=== PATIENT | female | born 1980 | race Caucasian/White ===

== ENCOUNTER 2019-11-17 16:07 | Emergency (ER) | payer BC, OTHER ==
--- NOTE | 2019-11-17 16:09 | EDM.PDOC ---
ED HPI GENERAL MEDICAL PROBLEM - General Stated Complaint: SHORTNESS OF BREATHE, DIZZINESS Time Seen by Provider: 11/17/19 16:09 Source of Information: Reports: Patient History Limitations: Reports: No Limitations - History of Present Illness INITIAL COMMENTS - FREE TEXT/NARRATIVE: HISTORY AND PHYSICAL: History of present illness: Patient is a 39-year-old female who presents to the emergency room with complaints of shortness of breath, dizziness and near syncope x2 days. She reports on Sunday she was doing a lot of yard work and had felt overall healthy and well. On Sunday when she woke up she felt very dizzy and like she could "pass out" and SOB. She spent the whole day increasing her fluids (Gatorade, water, salt water), trying to eat frequent meals and stay inside (incase she had "heat-stroke". She did have mild nausea yesterday, but minimal today. Her SOB worsened and dizziness/near-syncope persisted. She attempted to be evaluated through telehealth, they recommended she come to the emergency room. She denies any injury, trauma or falls. Patient denies any fever, chills, headache, change in vision, chest pain, back pain, abdominal pain, vomiting, diarrhea, constipation or dysuria. Has not noted any blood in urine or stool. LMP 11/05/2019, "heavier than normal". Declines any chance of . Patient has been eating and drinking appropriately. No smoking history, does not take any hormone replacements. No recent travel or exposure to anyone who's been ill. No long periods of sitting/standing. Reports a mild history of asthma; has taken inhalers previously for asthma exacerbation. Review of systems: As per history of present illness and below otherwise all systems reviewed and negative. Past medical history: As per history of present illness and as reviewed below otherwise noncontributory. Surgical history: As per history of present illness and as reviewed below otherwise noncontributory. Social history: See social history for further information Family history: As per history of present illness and as reviewed below otherwise noncontributory. Physical exam: General: Well-developed and well-nourished 39-year-old female. Alert and oriented. Nontoxic-appearing and in no acute distress. HEENT: Atraumatic, normocephalic, pupils equal and reactive bilaterally, negative for conjunctival pallor or scleral icterus, no nystamus noted, no pain with ocular movement. Her mucous membranes are dry, TMs normal bilaterally, throat clear, neck supple, nontender, trachea midline. No drooling or trismus noted. No meningeal signs. No hot potato voice noted. Lungs: Diminished to bilateral bases with auscultation, breath sounds equal bilaterally, chest nontender. Dry nonproductive cough noted. She does become very short of breath with speaking more than a few words. Heart: S1S2, regular rate and rhythm without overt murmur Abdomen: Soft, nondistended, nontender. Negative for masses or hepatosplenomegaly. Negative for costovertebral tenderness. Pelvis: Stable nontender. Skin: Intact, warm, dry. No lesions or rashes noted. Extremities: Atraumatic, moves all extremities per self without difficulty or deficits, negative for cords or calf pain. Neurovascular unremarkable. Neuro: Awake, alert, oriented. Cranial nerves II through XII unremarkable. Cerebellum unremarkable. Motor and sensory unremarkable throughout. Exam nonfocal. Notes: Patient states she did have a COVID test in October 2019, this was negative. Today shortness of breath is a separate occurrence, I will re-screen her for COVID-19. She is agreeable to some basic lab work. Due to how symptomatic she is with her shortness of breath with ambulation/talking I am going to scan her chest to rule out a PE. EKG done at 1639 shows normal sinus rhythm with a rate of 73. No acute findings are noted. No previous EKG for comparison. Negative COVID screening today. Lab work is otherwise unremarkable. CT of chest shows no findings of PE. Nothing acute is appreciated on imaging. She states she feels better after IV fluids and steroids. The orthostatic vital signs are within normal limits. We discussed the need for close follow-up with her primary care. She does not have any inhaler available to her at home "my script is probably outdated". Supportive care measures were reviewed and discussed. Voices understanding and is agreeable to plan of care. Denies any further questions or concerns at this time. Diagnostics: CBC, CMP, Troponin, EKG, CTA chest, TSH, UA, HCGU, BNP, orthostatic vital signs Therapeutics: IV fluids, Solumedrol Prescription: Albuterol Impression: Dyspnea Dizziness Plan: 1. Your lab work, EKG, CT of your chest is within normal limits. Please continue to monitor your symptoms - if they should worsen or new symptoms develop, RETURN to the ED for re-evaluation. Otherwise I would like you to follow up with your primary care provider in the next 1-2 days. 2. Increase your oral fluids to prevent dehydration. Small frequent meals throughout the day. Change positions slowly. 3. Tylenol and/or Ibuprofen as needed for pain. Meclizine is over the counter; may be taken as directed for dizziness. Definitive disposition and diagnosis as appropriate pending reevaluation and review of above. - Related Data Allergies Allergy/AdvReac Type Severity Reaction Status Date / Time ciprofloxacin [From Cipro] Allergy Rash Verified 11/17/19 16:17 Home Meds: Home Meds Albuterol [Proventil HFA] 2 puff INH Q4H PRN #1 inhaler 11/17/19 [Rx] Desvenlafaxine Succinate [Pristiq] mg PO DAILY 11/17/19 [History] Lisdexamfetamine Dimesylate [Vyvanse] mg PO DAILY 11/17/19 [History] Past Medical History - Past Health History Medical/Surgical History: Denies Medical/Surgical History Social & Family History - Family History Family Medical History: Noncontributory ED ROS GENERAL - Review of Systems Review Of Systems: Comprehensive ROS is negative, except as noted in HPI. ED EXAM, GENERAL - Physical Exam Exam: See Below (See dictation) Course - Vital Signs Last Recorded V/S: Last Vital Signs Temp 97.8 F 11/17/19 16:19 Pulse 72 11/17/19 16:19 Resp 18 11/17/19 16:19 BP 146/98 H 11/17/19 16:19 Pulse Ox 96 11/17/19 16:19 Orthostatic Blood Pressure [ 147/82 Standing] Orthostatic Blood Pressure [ 138/75 Sitting] Orthostatic Blood Pressure [ 127/71 Supine] - Orders/Labs/Meds Orders: Active Orders 24 hr Category Date Time Status EKG Documentation Completion [RC] STAT Care 11/17/19 16:27 Active Orthostatic Vital Signs [RC] ASDIRECTED Care 11/17/19 18:21 Active Labs: Laboratory Tests 11/17/19 11/17/19 11/17/19 Range/Units 16:35 16:35 16:45 WBC 4.43 (4.0-11.0) K/uL RBC 4.78 (4.30-5.90) M/uL Hgb 14.0 (12.0-16.0) g/dL Hct 41.6 (36.0-46.0) % MCV 87.0 (80.0-98.0) fL MCH 29.3 (27.0-32.0) pg MCHC 33.7 (31.0-37.0) g/dL RDW Std Deviation 43.4 (28.0-62.0) fl RDW Coeff of Conrado 14 (11.0-15.0) % Plt Count 284 (150-400) K/uL MPV 10.80 (7.40-12.00) fL Neut % (Auto) 49.5 (48.0-80.0) % Lymph % (Auto) 43.3 H (16.0-40.0) % [place] % (Auto) 7.0 (0.0-15.0) % Eos % (Auto) 0.0 (0.0-7.0) % Baso % (Auto) 0.2 (0.0-1.5) % Neut # (Auto) 2.2 (1.4-5.7) K/uL Lymph # (Auto) 1.9 (0.6-2.4) K/uL [place] # (Auto) 0.3 (0.0-0.8) K/uL Eos # (Auto) 0.0 (0.0-0.7) K/uL Baso # (Auto) 0.0 (0.0-0.1) K/uL Nucleated RBC % 0.0 /100WBC Nucleated RBCs # 0 K/uL Sodium (136-145) mmol/L Potassium (3.5-5.1) mmol/L Chloride (98-107) mmol/L Carbon Dioxide (21.0-32.0) mmol/L BUN (7.0-18.0) mg/dL Creatinine (0.6-1.0) mg/dL Est Cr Clr Drug Dosing mL/min Estimated GFR (MDRD) ml/min Glucose (74-106) mg/dL Calcium (8.5-10.1) mg/dL Total Bilirubin (0.2-1.0) mg/dL AST (15-37) IU/L ALT (14-63) IU/L Alkaline Phosphatase (46-116) U/L Troponin I (0.000-0.056) ng/mL B-Natriuretic Peptide (<100) PG/ML Total Protein (6.4-8.2) g/dL Albumin (3.4-5.0) g/dL Globulin (2.6-4.0) g/dL Albumin/Globulin Ratio (0.9-1.6) TSH 3rd Generation (0.36-3.74) uIU/mL Urine Color YELLOW Urine Appearance CLEAR Urine pH 6.0 (5.0-8.0) Ur Specific [place] 1.015 (1.001-1.035) Urine Protein NEGATIVE (NEGATIVE) mg/dL Urine Glucose (UA) NEGATIVE (NEGATIVE) mg/dL Urine Ketones NEGATIVE (NEGATIVE) mg/dL Urine Occult Blood SMALL H (NEGATIVE) Urine Nitrite NEGATIVE (NEGATIVE) Urine Bilirubin NEGATIVE (NEGATIVE) Urine Urobilinogen 0.2 (<2.0) EU/dL Ur Leukocyte Esterase NEGATIVE (NEGATIVE) Urine RBC 1-2 (0-2/HPF) Urine WBC 0-1 (0-5/HPF) Ur Epithelial Cells RARE (NONE-FEW) Urine Bacteria RARE (NEGATIVE) Urine HCG, Qual NEGATIVE (NEGATIVE) COVID-19 (LATESHA) (NEGATIVE) 11/17/19 11/17/19 11/17/19 Range/Units 16:45 16:45 16:56 WBC (4.0-11.0) K/uL RBC (4.30-5.90) M/uL Hgb (12.0-16.0) g/dL Hct (36.0-46.0) % MCV (80.0-98.0) fL MCH (27.0-32.0) pg MCHC (31.0-37.0) g/dL RDW Std Deviation (28.0-62.0) fl RDW Coeff of [place]rado (11.0-15.0) % Plt Count (150-400) K/uL MPV (7.40-12.00) fL Neut % (Auto) (48.0-80.0) % Lymph % (Auto) (16.0-40.0) % [place] % (Auto) (0.0-15.0) % Eos % (Auto) (0.0-7.0) % Baso % (Auto) (0.0-1.5) % Neut # (Auto) (1.4-5.7) K/uL Lymph # (Auto) (0.6-2.4) K/uL [place] # (Auto) (0.0-0.8) K/uL Eos # (Auto) (0.0-0.7) K/uL Baso # (Auto) (0.0-0.1) K/uL Nucleated RBC % /100WBC Nucleated RBCs # K/uL Sodium 139 (136-145) mmol/L Potassium 3.7 (3.5-5.1) mmol/L Chloride 104 (98-107) mmol/L Carbon Dioxide 26.2 (21.0-32.0) mmol/L BUN 6 L (7.0-18.0) mg/dL Creatinine 0.5 L (0.6-1.0) mg/dL Est Cr Clr Drug Dosing 118.29 mL/min Estimated GFR (MDRD) > 60.0 ml/min Glucose 100 (74-106) mg/dL Calcium 8.8 (8.5-10.1) mg/dL Total Bilirubin 0.2 (0.2-1.0) mg/dL AST 22 (15-37) IU/L ALT 34 (14-63) IU/L Alkaline Phosphatase 92 (46-116) U/L Troponin I < 0.050 (0.000-0.056) ng/mL B-Natriuretic Peptide 26 (<100) PG/ML Total Protein 7.7 (6.4-8.2) g/dL Albumin 3.9 (3.4-5.0) g/dL Globulin 3.8 (2.6-4.0) g/dL Albumin/Globulin Ratio 1.0 (0.9-1.6) TSH 3rd Generation 1.97 (0.36-3.74) uIU/mL Urine Color Urine Appearance Urine pH (5.0-8.0) Ur Specific [place] (1.001-1.035) Urine Protein (NEGATIVE) mg/dL Urine Glucose (UA) (NEGATIVE) mg/dL Urine Ketones (NEGATIVE) mg/dL Urine Occult Blood (NEGATIVE) Urine Nitrite (NEGATIVE) Urine Bilirubin (NEGATIVE) Urine Urobilinogen (<2.0) EU/dL Ur Leukocyte Esterase (NEGATIVE) Urine RBC (0-2/HPF) Urine WBC (0-5/HPF) Ur Epithelial Cells (NONE-FEW) Urine Bacteria (NEGATIVE) Urine HCG, Qual (NEGATIVE) COVID-19 (LATESHA) NEGATIVE (NEGATIVE) Meds: Medications Discontinued Medications Generic Name Dose Route Start Last Admin Trade Name Freq PRN Reason Stop Dose Admin Sodium Chloride 1,000 mls @ 999 mls/hr 11/17/19 16:27 11/17/19 16:48 Normal Saline IV 11/17/19 17:27 999 mls/hr STAT ONE Administration Iopamidol 50 ml 11/17/19 18:02 11/17/19 18:03 Isovue Multipack-370 (76%) IVPUSH 11/17/19 18:03 50 ml ONETIME STA Administration Meclizine HCl 25 mg 11/17/19 18:21 11/17/19 18:32 Antivert PO 11/17/19 18:22 25 mg ONETIME ONE Administration Methylprednisolone Sodium Succinate 125 mg 11/17/19 16:37 11/17/19 16:52 Solu-Medrol IVPUSH 11/17/19 16:38 125 mg ONETIME ONE Administration Departure - Departure Time of Disposition: 18:32 Disposition: Home, Self-Care 01 Clinical Impression: Dizziness Dyspnea Qualifiers: Dyspnea type: unspecified Qualified Code(s): R06.00 - Dyspnea, unspecified - Discharge Information Prescriptions: Albuterol [Proventil HFA] 2 puff INH Q4H PRN #1 inhaler PRN Reason: Dyspnea Referrals: Shelley Elliott DO [Primary Care Provider] - Sepsis Event Note (ED) - Focused Exam Vital Signs: Vital Signs Temp Pulse Resp BP Pulse Ox 11/17/19 16:19 97.8 F 72 18 146/98 H 96 - My Orders Last 24 Hours: My Active Orders 11/17/19 16:27 EKG Documentation Completion [RC] STAT 11/17/19 18:21 Orthostatic Vital Signs [RC] ASDIRECTED - Assessment/Plan Last 24 Hours: My Active Orders 11/17/19 16:27 EKG Documentation Completion [RC] STAT 11/17/19 18:21 Orthostatic Vital Signs [RC] ASDIRECTED
[2019-11-17] MEDS ORDERED: Sodium Chloride 0.9% 1,000 ML IV ONE (16:27)
[2019-11-17] MEDS ORDERED: methylPREDNISolone Sodium Succinate 125 MG/2 ML SDV IVPUSH ONE (16:37)
[2019-11-17 17:29] LABS: BLOOD UREA NITROGEN,BUN 6 mg/dL (7.0-18.0); CARBON DIOXIDE,CO2 26.2 mmol/L (21.0-32.0); CHLORIDE,CL 104 mmol/L (98-107); GLUCOSE RANDOM 100 mg/dL (74-106); POTASSIUM,K 3.7 mmol/L (3.5-5.1); SODIUM,NA 139 mmol/L (136-145)
[2019-11-17] MEDS ORDERED: Iopamidol 755 MG/ML 500 ML Multipack Bottle IVPUSH STA (18:02)
--- NOTE | 2019-11-17 18:17 | CT ---
CT chest Technique: Multiple axial sections through the chest were obtained. Intravenous contrast was utilized. Study has been performed as a pulmonary angiogram protocol. Comparison: No prior chest imaging is available. Findings: Pulmonary arteries are fairly well opacified. No filling defects are seen to indicate discrete pulmonary embolism. Aorta shows no aneurysm. No pericardial thickening is seen. Visualized upper abdominal structures shows nothing acute. Prior cholecystectomy is noted. Mediastinum and hilar region show no adenopathy. No axillary adenopathy is seen. Lung window settings were reviewed. No acute parenchymal change is appreciated. No pleural effusions are seen. Bone window settings were reviewed which shows no discrete osseous finding. Impression: 1. No findings of pulmonary embolism. 2. Nothing acute is appreciated on CT study of the chest. Diagnostic code #1 This report was dictated in MDT
[2019-11-17] MEDS ORDERED: Meclizine 25 MG Tab PO ONE (18:21)
[2019-11-17 18:58] VITALS: BP 144/85; PULSE 68
== END 2019-11-17 18:50 | disposition home or self-care (01) ==
LOC: MW.ED 16:07
DX: R06.02 Shortness of breath (principal); R42 Dizziness and giddiness; Z20.828 Contact with and (suspected) exposure to other viral communicable diseases; Z88.1 Allergy status to other antibiotic agents; Z79.899 Other long term (current) drug therapy
CPT/HCPCS: 36415; 71275; 80053; 81001; 81025; 83880; 84443; 84484; 85025; 87635; 93005; 96361; 96374; 99285; A9270; J2930; J7030; Q9967; 99283; U0002